=== PATIENT | male | born 1990 | race American Indian/Alaskan Native ===

== ENCOUNTER 2019-12-03 21:41 | Emergency (ER) | payer SELFPAY ==
[2019-12-04] MEDS ORDERED: predniSONE 20 MG TAB PO ONE
[2019-12-04] MEDS ORDERED: ACETAMINOPHEN 500 MG TAB PO ONE
[2019-12-04] MEDS ORDERED: AMOXICILLIN/K CLAV 875/125MG TAB PO ONE
[2019-12-04 00:11] VITALS: BP 131/77
--- NOTE | 2019-12-04 00:28 | Emergency Department Report ---
- General Chief Complaint: Headache Stated Complaint: COUGH, LETHARGIC Source: patient Mode of arrival: Ambulatory Limitations: No Limitations - History of Present Illness Initial Comments: Patient is a 29-year-old male with a history of chronic recurrent sinusitis who presented to the ED with acute onset persistent nasal and sinus congestion, persistent dry cough, mild sore throat and frontal sinus pressure and headache persistently for the last 2 weeks, worse in the last 4 days. Patient states that he has been using [id number] medications with no relief. Patient states that his symptoms are worse at night when he lays down to sleep in a supine position. Patient states that no one else at home is had similar symptoms. Patient states that he works outside and usually at the end of the d ay his symptoms get worse. Patient denies fever, chills, nausea, vomiting, chest pain, shortness of breath, wheezing, syncope, abdominal pain, dizziness, diarrhea or change in vision. MD Complaint: cough, sore throat, rhinorrhea, nasal congestion, sinus pain -: Sudden, days(s) (4), week(s) (2) Severity: severe Severity scale (0 -10): 7 Quality: sharp, aching Consistency: constant Improves With: nothing Worsens With: other (supine position) Associated Symptoms: denies other symptoms, headache, rhinorrhea, nasal congestion, sore throat, cough. denies: fever, chills, myalgias, diaphoresis, chest pain, shortness of breath, abdominal pain, nausea, vomiting, diarrhea, dysuria, rash, confusion, right sweats, weight loss, epistaxis, hoarseness, ear pain Treatments Prior to Arrival: "cold medicine" - Related Data Previous Rx's Medication Instructions Recorded Last Taken Type Cyclobenzaprine [Flexeril 10mg] 10 mg PO TID PRN #20 tablet 11/01/14 Unknown Rx HYDROcodone/APAP 5-325 [Witten 1 each PO Q6HR PRN #14 tablet 11/01/14 Unknown Rx 5/325] Ibuprofen [Motrin] 800 mg PO Q8H PRN #30 tablet 11/01/14 Unknown Rx Ibuprofen [Motrin 800 MG tab] 800 mg PO Q8HR PRN #60 tablet 04/02/15 Unknown Rx Penicillin Vk [Veetids TAB] 500 mg PO QID #40 tablet 04/02/15 Unknown Rx traMADoL [Ultram 50 MG tab] 50 mg PO Q6HR PRN #20 tablet 04/02/15 Unknown Rx Amoxicillin/Potassium Clav 1 each PO Q12H #20 tablet 12/04/19 Unknown Rx [Augmentin 875-125 Tablet] Benzonatate [Tessalon Perles] 100 mg PO Q8HR #30 capsule 12/04/19 Unknown Rx Cetirizine HCl [Zyrtec 10mg tab] 10 mg PO DAILY #30 tablet 12/04/19 Unknown Rx Fluticasone [Flonase] 1 spray NS QDAY #1 bottle 12/04/19 Unknown Rx Ibuprofen [Motrin] 800 mg PO Q8HR PRN #30 tablet 12/04/19 Unknown Rx Allergies Allergy/AdvReac Type Severity Reaction Status Date / Time No Known Allergies Allergy Verified 11/01/14 22:32 ED Review of Systems ROS: Stated complaint: COUGH, LETHARGIC Other details as noted in HPI Constitutional: denies: chills, fever Eyes: denies: eye pain, eye discharge, vision change ENT: throat pain, congestion. denies: ear pain Respiratory: cough. denies: shortness of breath, wheezing Cardiovascular: denies: chest pain, palpitations Endocrine: no symptoms reported Gastrointestinal: denies: abdominal pain, nausea, diarrhea Genitourinary: denies: urgency, dysuria Musculoskeletal: denies: back pain, joint swelling, arthralgia Skin: denies: rash, lesions Neurological: headache. denies: weakness, paresthesias Psychiatric: denies: anxiety, depression Hematological/Lymphatic: denies: easy bleeding, easy bruising ED Past Medical Hx - Past Medical History Previous Medical History?: No - Surgical History Past Surgical History?: No - Social History Smoking Status: Never Smoker Substance Use Type: None - Medications Home Medications: Home Medications Medication Instructions Recorded Confirmed Last Taken Type Cyclobenzaprine [Flexeril 10mg] 10 mg PO TID PRN #20 tablet 11/01/14 Unknown Rx HYDROcodone/APAP 5-325 [Witten 1 each PO Q6HR PRN #14 tablet 11/01/14 Unknown Rx 5/325] Ibuprofen [Motrin] 800 mg PO Q8H PRN #30 tablet 11/01/14 Unknown Rx Ibuprofen [Motrin 800 MG tab] 800 mg PO Q8HR PRN #60 tablet 04/02/15 Unknown Rx Penicillin Vk [Veetids TAB] 500 mg PO QID #40 tablet 04/02/15 Unknown Rx traMADoL [Ultram 50 MG tab] 50 mg PO Q6HR PRN #20 tablet 04/02/15 Unknown Rx Amoxicillin/Potassium Clav 1 each PO Q12H #20 tablet 12/04/19 Unknown Rx [Augmentin 875-125 Tablet] Benzonatate [Tessalon Perles] 100 mg PO Q8HR #30 capsule 12/04/19 Unknown Rx Cetirizine HCl [Zyrtec 10mg tab] 10 mg PO DAILY #30 tablet 12/04/19 Unknown Rx Fluticasone [Flonase] 1 spray NS QDAY #1 bottle 12/04/19 Unknown Rx Ibuprofen [Motrin] 800 mg PO Q8HR PRN #30 tablet 12/04/19 Unknown Rx ED Physical Exam - General Limitations: No Limitations General appearance: alert, in no apparent distress - Head Head exam: Present: atraumatic, normocephalic, normal inspection - Eye Eye exam: Present: normal appearance, PERRL, EOMI Pupils: Present: normal accommodation - ENT ENT exam: Present: normal orophraynx, mucous membranes moist, TM's normal bilaterally, normal external ear exam, other (Grossly congested nasal passages; palpable frontal sinus tenderness) - Neck Neck exam: Present: normal inspection, full ROM. Absent: tenderness, lymphadenopathy - Respiratory Respiratory exam: Present: normal lung sounds bilaterally. Absent: respiratory distress, wheezes, rales, rhonchi, chest wall tenderness, accessory muscle use, decreased breath sounds, prolonged expiratory - Cardiovascular Cardiovascular Exam: Present: normal rhythm, tachycardia, normal heart sounds. Absent: systolic murmur, diastolic murmur, rubs, gallop - GI/Abdominal GI/Abdominal exam: Present: soft, normal bowel sounds. Absent: distended, tenderness, guarding, rebound, hyperactive bowel sounds, hypoactive bowel sounds - Extremities Exam Extremities exam: Present: normal inspection, full ROM, normal capillary refill - Back Exam Back exam: Present: normal inspection, full ROM. Absent: tenderness, CVA tenderness (R), CVA tenderness (L), muscle spasm, paraspinal tenderness, vertebral tenderness - Neurological Exam Neurological exam: Present: alert, oriented X3, CN II-XII intact, normal gait, reflexes normal - Psychiatric Psychiatric exam: Present: normal affect, normal mood - Skin Skin exam: Present: warm, dry, intact, normal color. Absent: rash ED Course Vital Signs 12/03/19 12/04/19 21:52 00:10 Temperature 99.6 F 98 F Pulse Rate 114 H 98 H Respiratory 18 18 Rate Blood Pressure 176/94 Blood Pressure 131/77 [Right] O2 Sat by Pulse 100 95 Oximetry ED Medical Decision Making - Medical Decision Making This is a 29-year-old male with a history of chronic recurrent sinusitis who presented to the ED with acute onset persistent nasal and sinus congestion, persistent dry cough, mild sore throat and frontal sinus pressure and headache persistently for the last 2 weeks, worse in the last 4 days. In the ED, patient is alert and oriented x3 and is not in distress but tachycardic, afebrile and hypertensive in triage. In the ED, patient was treated with pain medication, also given prednisone and initial oral antibiotics based on physical exam findings. On reevaluation, patient tachycardia resolved and patient pain is well controlled with medications. Patient was discharged home on medications and advised to follow-up with her primary care physician in 7 to 10 days for reevaluation or return to the ED immediately if symptoms get worse. - Differential Diagnosis Sinusitis; URI; Pharyngitis; Rhinitis; Bronchitis Critical care attestation.: If time is entered above; I have spent that time in minutes in the direct care of this critically ill patient, excluding procedure time. ED Disposition Clinical Impression: Acute upper respiratory infection, Acute recurrent frontal sinusitis Acute bronchitis Qualifiers: Bronchitis organism: unspecified organism Qualified Code(s): J20.9 - Acute bronchitis, unspecified Disposition: DC-01 TO HOME OR SELFCARE Is pt being admited?: No Does the pt Need Aspirin: No Condition: Stable Instructions: Acute Bronchitis (ED), Upper Respiratory Infection (ED), Acute Bacterial Rhinosinusitis (ED) Additional Instructions: Your symptoms due to upper respiratory infection and sinusitis, causing bronchitis. Take medication with food, drink plenty of fluids and follow-up with your primary care physician in 7 to 10 days for reevaluation. Return to the ED immediately if symptoms get worse. Prescriptions: Amoxicillin/Potassium Clav [Augmentin 875-125 Tablet] 1 each PO Q12H #20 tablet Fluticasone [Flonase] 1 spray NS QDAY #1 bottle Ibuprofen [Motrin] 800 mg PO Q8HR PRN #30 tablet PRN Reason: Pain , Severe (7-10) Benzonatate [Tessalon Perles] 100 mg PO Q8HR #30 capsule Cetirizine HCl [Zyrtec 10mg tab] 10 mg PO DAILY #30 tablet Referrals: [facility] [Provider Group] - 7-10 days Time of Disposition: 00:31 Print Language: ARMENIAN
== END 2019-12-04 00:49 | disposition home or self-care (01) ==
LOC: ED 21:41
DX: J20.9 Acute bronchitis, unspecified (principal); J06.9 Acute upper respiratory infection, unspecified; J01.11 Acute recurrent frontal sinusitis; Z79.899 Other long term (current) drug therapy
CPT/HCPCS: 99282; J7512